=== PATIENT | male | born 1965 | race Caucasian/White ===

== ENCOUNTER 2023-07-21 08:12 | Day surgery (SDC) | payer MEDICARE, MEDICAID ==
[~2023-07-21] VITALS: Ht 172.7 cm; Wt 58.7 kg
[2023-07-21] VITALS (11 sets, daily range): BP systolic 143–161; BP diastolic 80–101; PULSE 73–103; RESP 16; TEMP 97.8; O2SAT 98–100
[2023-07-21] MEDS ORDERED: nitroGLYCERIN 0.4mg SUBLingual tab SL PRN (08:30)
[2023-07-21] MEDS ORDERED: normal saline 1,000 ML IV SCH (08:30)
[2023-07-21] MEDS ORDERED: LORazepam 0.5 MG tablet PO PRN (08:30)
[2023-07-21] MEDS ORDERED: diphenhydrAMINE 25mg capsule PO PRN (08:30)
[2023-07-21] MEDS ORDERED: FLUT16SP26 (08:37)
[2023-07-21] MEDS ORDERED: ATOR10TA70 PO (08:37)
[2023-07-21] MEDS ORDERED: CLOP75TA34 PO (08:37)
[2023-07-21 09:07] LABS: BASOPHILS # (AUTO) 0.1 X10'3 (0-0.2); EOSINOPHILS # (AUTO) 0.1 X10'3 (0-0.9); EOSINOPHILS % (AUTO) 1.5 % (0-6); HEMOGLOBIN 16.2 g/dl (14.0-17.9); LYMPHOCYTES # (AUTO) 2.2 X10'3 (1.1-4.8); LYMPHOCYTES % (AUTO) 25.8 % (21-51); MEAN CORPUSCULAR HEMOGLOBIN 30.1 PG (27.0-31.0); MEAN CORPUSCULAR HGB CONC 33.1 g/dL (33.0-36.5); MEAN CORPUSCULAR VOLUME 91.1 FL (78-98); MEAN PLATELET VOLUME 7.7 FL (7.4-10.4); MONOCYTES # (AUTO) 0.6 X10'3 (0-0.9); MONOCYTES % (AUTO) 7.6 % (2-12); NEUTROPHILS # (AUTO) 5.4 X10'3 (1.8-7.7); NEUTROPHILS % (AUTO) 64.1 % (42-75); PLATELET COUNT 232 X10'3 (140-440); RED BLOOD COUNT 5.37 X10'6 (4.70-6.10); WHITE BLOOD COUNT 8.4 X10'3 (4.5-11.0)
[2023-07-21 09:19] LABS: INR 0.9 INR; PROTHROMBIN TIME 10.2 SECONDS (9.0-12.0)
[2023-07-21 09:21] LABS: ALBUMIN 3.6 G/DL (3.4-5.0); BLOOD UREA NITROGEN 8 MG/DL (7-18); BUN/CREATININE RATIO 9.1 (10.0-20.0); CALCIUM 8.7 MG/DL (8.5-10.1); CREATININE 0.88 MG/DL (0.60-1.10); GLUCOSE 78 MG/DL (70-104); TOTAL CARBON DIOXIDE 26.3 MMOL/L (24-32); eCRCL 74 ML/MIN; eGFR 88 ML/MIN
[2023-07-21 10:03] LABS: ANION GAP 8 (8-16); CHLORIDE 104 MMOL/L (99-107); POTASSIUM 3.7 MMOL/L (3.5-5.1); SODIUM 138 MMOL/L (135-145)
[2023-07-21] MEDS ORDERED: midazolam 1 mg/ML 2ml injection ONE ×2 (12:34→13:49)
[2023-07-21] MEDS ORDERED: iohexol 350 MG/ML 50ML vial IV ONE ×2 (12:34→13:22)
[2023-07-21] MEDS ORDERED: fentaNYL/PF 50MCG/1 ML 2ML syringe ONE (12:34)
[2023-07-21] MEDS ORDERED: iohexol 350MG/ML 100ml bottle IV ONE (12:35)
[2023-07-21] MEDS ORDERED: LIDOcaine 1% (10mg/ml)w/preservative inj. 20ml MDV ONE (12:35)
[2023-07-21] MEDS ORDERED: hydrALAZINE 20mg/ml inj. IV ONE (13:26)
[2023-07-21] MEDS ORDERED: normal saline 1000ml 1,000 ML IV SCH (15:10)
[2023-07-21] MEDS ORDERED: proCHLORperazine 10 MG/2 ml inj IV PRN (15:10)
[2023-07-21] MEDS ORDERED: HYDROcodone/acetaminophen 10/325mg tab PO PRN (15:10)
[2023-07-21] MEDS ORDERED: ondansetron/PF 4mg/2ml inj IV PRN (15:10)
[2023-07-21] MEDS ORDERED: OXAZEpam 15mg capsule PO PRN (15:10)
[2023-07-21] MEDS ORDERED: HYDROcodone/acetaminophen 5mg/325mg tablet PO PRN (15:10)
== END 2023-07-21 19:20 | disposition home or self-care (01) ==
LOC: SSTAY O 08:12
PROVIDERS: ATTEND Internal Medicine Cardiovascular Disease
DX: R94.39 Abnormal result of other cardiovascular function study (principal); I25.10 Atherosclerotic heart disease of native coronary artery without angina pectoris; I34.0 Nonrheumatic mitral (valve) insufficiency; I10 Essential (primary) hypertension; E78.5 Hyperlipidemia, unspecified; I25.2 Old myocardial infarction; Z79.01 Long term (current) use of anticoagulants; Z79.82 Long term (current) use of aspirin; Z79.899 Other long term (current) drug therapy; Z87.891 Personal history of nicotine dependence
CPT/HCPCS: 36415; 71046; 80048; 85025; 85610; 93005; 93458; 99152; 99153; C1760; J0360; J1644; J2250; J3010; J3490; J7030; Q0163; Q9967; A6258